=== PATIENT | female | born 1955 | race Caucasian/White ===

== ENCOUNTER 2017-11-21 12:49 | Day surgery (SDC) | payer OTHER, SELFPAY ==
--- NOTE | 2017-11-21 | PATH_ITS ---
[facility] Accession Number: [id number] . 01 Material submitted: . PART A: ANTRAL BIOPSY PART B: RANDOM COLON BX PART C: SIGMOID COLON POLYP AT 30 . 02 Diagnosis: A. Antrum, Biopsy: Gastric antral mucosa with no diagnostic abnormality. No evidence of Helicobacter organisms on H/E stain. Negative for intestinal metaplasia, dysplasia or malignancy. . B. Random Colon, Biopsies: Colonic mucosa with no diagnostic abnormality. Negative for active or microscopic colitis. Negative for granulomata, dysplasia or malignancy. . C. Sigmoid Colon Polyp at 30 cm: Hyperplastic polyp. [facility]/11/26/2017 . 02 Electronically signed: . Burke Whatley MD, PhD, Pathologist NPI- [id number] . 01 Gross description: . Received three formalin-filled containers. No identification on first container. ID confirmed per client. . A. No source on container, arbitrarily designated A, are four 0.1 to 0.4 cm portions of tissue. Entirely submitted in cassette A. B. In a container labeled random colon are multiple less than 0.1 to 0.3 cm portions of tissue, which are filtered, wrapped and entirely submitted in cassette B. C. In a container labeled sigmoid colon polyp 30, the specimen consists of a 0.3 cm portion of tissue. Entirely submitted in cassette C. ([facility] [place]:[id number]) /[facility] . 02 Pathologist provided ICD-10: R10.9, K63.5 . 02 CPT . 697739, 279052, [id number] Performed at: [address] [facility] [address], [place], [place] [id number] MD Maxime Salamanca MD Phone: [phone] Performed at: [address] [facility] [id number] [place] [id number] MD Thai Vázquez MD Phone: [phone]
[2017-11-21 13:07] VITALS: BP 121/76; PULSE 69; RESP 16; TEMP 36.2; O2SAT 96; BMI 26.6
[2017-11-21] MEDS: SODIUM CHLORIDE 0.9% 1,000 ML 200 ML IV (13:21)
[2017-11-21 13:49] LABS: Add Manual Diff / Slide Review NO; Basophils Percent Auto 0.6 % (0-2); Eosinophils Percent Auto 1.4 % (2-4); Hematocrit 41.9 % (36-46); Hemoglobin 14.5 g/dL (12.0-16.0); Lymphocytes Percent Auto 33.8 % (25-40); Mean Corpuscular HGB Conc 34.7 % (30-36); Mean Corpuscular Hemoglobin 30.3 PG (26-34); Mean Corpuscular Volume 87.4 fL (80-100); Monocytes Percent Auto 10.2 % (3-14); Neutrophils Absolute Auto 3400 /uL (3000-5900); Platelet Count 332 X10^3/uL (150-400); Red Cell Distribution Width 13.4 % (11.6-14.8); White Blood Cell Count 6.4 X10^3/uL (4.5-11.0)
--- NOTE | 2017-11-21 13:58 | PM.PREOP ---
Pre-operative Note Interval Note Pre-op Check: Yes History & Physical Reviewed by Physician and Yes Exam Performed Changes: No H&P completed within 30 days and has changed as indicated here:: Patient seen and examined again today. No changes are noted today history physical examination documented and placed on the chart October 24, 2017. Proceed today with EGD and colonoscopy as planned. ASA Class (for procedural sedation): II
[2017-11-21] MEDS: LIDOCAINE 4% SOLN 50 ML 20 ML TOP (14:13)
[2017-11-21] MEDS: TETRACAINE/BENZOCAINE/BUTAMBEN (CETACAINE) BOTTLE 1 SPRAY TOP (14:14)
[2017-11-21] MEDS: MIDAZOLAM 5 MG/5 ML VIAL IV (14:14)
[2017-11-21] MEDS: fentaNYL 250 MCG/5 ML INJ IV (14:15)
[2017-11-21 14:32] LABS: Alanine Aminotransferase 31 IU/L (9-52); Albumin 4.4 g/dL (3.5-5.0); Albumin Globulin Ratio 1.5 (1.0-2.8); Alkaline Phosphatase 50 U/L (38-126); Aspartate Aminotransferase 23 IU/L (14-36); Bilirubin Total 0.8 mg/dL (0.2-1.3); Blood Urea Nitrogen 18 mg/dL (7-17); Calcium 9.8 mg/dL (8.4-10.2); Carbon Dioxide 33 mmol/L (22-32); Chloride 103 mmol/L (98-107); Estimated Glomerular Filt Rate 56.4 mL/min (>60); Globulin 2.9 g/dL (1.7-4.1); Glucose 102 mg/dL (80-110); HEMOLYSIS < 15 (0-50); Lipase 47 U/L (23-300); Potassium 4.3 mmol/L (3.4-5.1); Sodium 145 mmol/L (137-145); Total Protein 7.3 g/dL (6.3-8.2)
[2017-11-21 14:36] LABS: Rheumatoid Factor < 8.6 IU/mL (<12.0)
[2017-11-21 14:48] LABS: Free T3, Triiodothyronine Free 3.16 pg/mL (2.77-5.27)
[2017-11-21 14:49] VITALS: BP 98/59; PULSE 62; RESP 13; TEMP 36.1; O2SAT 94
--- NOTE | 2017-11-21 14:52 | P.OP.ENDO_ITS ---
Operative Date/Time/Diagnoses Date of procedure: 11/21/17 Time of procedure: 14:45 Pre-op diagnosis: Epigastric pain and reflux disease and diarrhea Post-op diagnosis: other (Gastric ulceration with moderate gastritis and duodenitis along with single colon polyp at 30 cm) Procedure & Clinicians Study performed: 1. Sedation per surgeon 2. Esophagogastroduodenoscopy with cold forceps biopsy 3. Colonoscopy with cold forceps polypectomy and biopsies Same procedure as scheduled: Yes Indications: 62-year-old female who recently presented with epigastric pain and reflux uncontrolled by medication. She had also been experiencing intermittent bouts of diarrhea. She was recommended to undergo EGD and colonoscopy. Surgeon: Flaco Neely Procedure Notes SCOAP/Timeout: Yes Procedure in detail: After obtaining informed consent, the patient was brought to the GI suite and placed in the left lateral decubitus position on the examination table. After placement of appropriate monitors, the patient was given incremental doses of Versed and Fentanyl until an appropriate level of sedation was achieved. A time out was held per SCOAP protocol. A bite block was gently placed between the patient's teeth. The endoscope was lubricated and then passed into the patient's posterior oropharynx. The esophagus was cannulated under direct vision and the scope was passed to the second portion of the duodenum without difficulty. The scope was then withdrawn with careful examination of all areas of the upper GI tract and mucosa. In the stomach, the instrument was retroflexed and the GE junction examined. The scope was straightened and the procedure continued with examination of the remainder of the upper GI tract. Findings are noted above. Air was aspirated from the stomach and the endoscope gently removed from the esophagus. Table was turned 180? for colonoscopy. A digital rectal examination was performed and did not reveal any masses or obstructing lesions. The colonoscope was gently passed into the patient's anus and the entire colon navigated to the level of the cecum with minimal difficulty. Once in the cecum, the scope was withdrawn being sure to go before and beyond all mucosal folds and prominences and get an excellent examination. The findings are noted above. At the level of the rectal vault, the scope was retroflexed and the internal anal canal was examined. The scope was straightened and air aspirated from the colon. The instrument was removed from the patient's body and the procedure was concluded. Bowel preparation was adequate. Patient was taken to recovery in stable condition. Scope withdrawal time: 11:24 min Sedation minutes: 32 Findings: diverticulosis (Minimal), gastric ulcer (Multiple linear and punctate ulcerations in the pre-pyloric region), gastritis, hiatal hernia (Relatively small and incidental), polyp (Sigmoid polyp at 30 cm from anal verge) and other findings (Z line at 36 cm from the incisors) Specimen(s): other (1. Antral biopsies 2. Sigmoid colon polyp at 30 cm 3. Random colon biopsies) Complications: none Recommendations: Colonscopy in 5 years, Prescription for (Omeprazole), No ASA/ NSAIDS and Start medication(s) Plan for aftercare: 1. Discharge to home 2. Follow up in surgery Clinic in 2 weeks Follow up: weeks (Surgery Clinic in 2 weeks) Disposition: PACU
[2017-11-21 14:54] VITALS: BP 119/69; PULSE 64; RESP 16; O2SAT 96
[2017-11-21 15:01] LABS: Thyroid Stimulating Hormone 2.74 uIU/mL (0.47-4.68)
[2017-11-21 15:18] VITALS: BP 100/63; PULSE 62; RESP 14; TEMP 36.1; O2SAT 95
== END 2017-11-21 15:22 | disposition home or self-care (01) ==
PROVIDERS: Family Provider Family Medicine Geriatric Medicine; PCP Family Medicine Geriatric Medicine; Visit Provider Surgery
PROC: 0DJ08ZZ Inspection of Upper Intestinal Tract, Via Natural or Artificial Opening Endoscopic (ICD-10-PCS; CPT 43235; principal; 2017-11-21 13:30)
PROC: 0DJD8ZZ Inspection of Lower Intestinal Tract, Via Natural or Artificial Opening Endoscopic (ICD-10-PCS; CPT 45378; 2017-11-21 13:30)
DX: K29.70 Gastritis, unspecified, without bleeding (principal); K21.9 Gastro-esophageal reflux disease without esophagitis; R19.7 Diarrhea, unspecified; K63.5 Polyp of colon; K25.9 Gastric ulcer, unspecified as acute or chronic, without hemorrhage or perforation; K29.80 Duodenitis without bleeding; K57.30 Diverticulosis of large intestine without perforation or abscess without bleeding; K44.9 Diaphragmatic hernia without obstruction or gangrene; I10 Essential (primary) hypertension
CPT/HCPCS: 45380; 43239; 36415; 80053; 83690; 84436; 84443; 84481; 84550; 85025; 86430; 99152; 99153; J2250; J3010